=== PATIENT | female | born 1955 | race Two or more races ===

== ENCOUNTER 2025-04-22 10:45 | Inpatient (IN) | payer OTHER ==
[~2025-04-22] VITALS: Ht 149.9 cm; Wt 59.9 kg
[2025-04-28] MEDS ORDERED: METRONIDAZOLE/SODIUM CHLORIDE 500 MG/100 ML PIGGYBACK IV ONE ×2 (07:04→07:45)
[2025-04-28] MEDS ORDERED: CEFTRIAXONE SODIUM 2,000 MG VIAL ONE (07:04)
[2025-04-28] MEDS ORDERED: CEFTRIAXONE SODIUM 2,000 MG VIAL IV ONE (07:45)
[2025-04-28] MEDS ORDERED: SUGAMMADEX SODIUM 200 MG/2 ML VIAL IV ONE ×2 (08:50→10:15)
[2025-04-28] MEDS ORDERED: MORPHINE SULFATE 4 MG/ML VIAL IV ONE ×3 (11:00→17:35)
[2025-04-28] MEDS ORDERED: ENALAPRILAT DIHYDRATE 1.25 MG/ML VIAL IV ONE ×2 (12:49→14:51)
[2025-04-28] MEDS ORDERED: ENALAPRILAT DIHYDRATE 2.5 MG/2 ML VIAL IV ONE (12:55)
[2025-04-28] MEDS ORDERED: ONDANSETRON HCL 2 MG/ML VIAL ONE (12:56)
[2025-04-28] MEDS ORDERED: ONDANSETRON HCL 2 MG/ML VIAL IV ONE (13:00)
[2025-04-28] MEDS ORDERED: ACETAMINOPHEN 500 MG GEL..CAP PO SCH (14:00)
[2025-04-28] MEDS ORDERED: MORPHINE SULFATE 4 MG/ML CARTRIDGE IV PRN (14:00)
[2025-04-28] MEDS ORDERED: ONDANSETRON HCL 2 MG/ML VIAL IV PRN (14:00)
[2025-04-28] MEDS ORDERED: OxyCODONE HCL 5 MG TABLET (ROXICODONE) PO PRN (14:00)
[2025-04-28] MEDS ORDERED: RINGERS SOLUTION,LACTATED 1,000 ML IV SCH (14:00)
[2025-04-28] MEDS ORDERED: ENALAPRILAT DIHYDRATE 1.25 MG/ML VIAL IV PRN (14:15)
[2025-04-28 15:19] LABS: BASO % 0.2 % (0.1-1.2); EOS # 0.00 (0.04-0.54); EOS % 0.0 % (0.7-7.0); LYMPH # 1.10 (1.18-3.74); LYMPH % 9.6 % (19.3-53.1); MEAN PLATELET VOLUME 9.70 fl (9.4-12.4); MONO # 1.18 (0.24-0.82); MONO % 10.3 % (4.7-12.5); NEUT # 9.11 (1.56-6.13); NEUT % 79.6 % (34.0-71.1); RED CELL DISTRIBUTION WIDTH 12.0 % (11.6-14.4)
[2025-04-28] MEDS ORDERED: METOCLOPRAMIDE HCL 5 MG/ML VIAL IV SCH (17:00)
[2025-04-28] MEDS ORDERED: HYOSCYAMINE SULFATE 0.125 MG TAB.SUBL SL SCH (17:00)
[2025-04-28] MEDS ORDERED: SIMETHICONE 125 MG CAPSULE PO SCH (17:00)
[2025-04-28] MEDS ORDERED: CELECOXIB 200 MG CAPSULE PO SCH (17:00)
[2025-04-28] MEDS ORDERED: POLYETHYLENE GLYCOL 3350 17 GM BLIST.PACK PO SCH (17:00)
[2025-04-28] MEDS ORDERED: GABAPENTIN 300 MG CAPSULE PO SCH (17:00)
[2025-04-28] MEDS ORDERED: CELECOXIB 200 MG CAPSULE PO ONE (17:36)
[2025-04-28] MEDS ORDERED: HYOSCYAMINE SULFATE 0.125 MG TAB.SUBL ONE (17:36)
[2025-04-28] MEDS ORDERED: GABAPENTIN 300 MG CAPSULE PO ONE (17:36)
[2025-04-28] MEDS ORDERED: METOCLOPRAMIDE HCL 5 MG/ML VIAL ONE (17:36)
[2025-04-28] MEDS ORDERED: SIMETHICONE 125 MG CAPSULE PO ONE (17:36)
[2025-04-28 18:30] VITALS: BP 133/70; O2SAT 97
[2025-04-28] MEDS ORDERED: FAMOTIDINE/PF 20 MG/2 ML VIAL IV PUSH SCH (21:00)
[2025-04-29 07:01] LABS: BASO % 0.5 % (0.1-1.2); EOS # 0.02 (0.04-0.54); EOS % 0.2 % (0.7-7.0); LYMPH # 1.53 (1.18-3.74); LYMPH % 15.1 % (19.3-53.1); MEAN PLATELET VOLUME 9.80 fl (9.4-12.4); MONO # 1.12 (0.24-0.82); MONO % 11.0 % (4.7-12.5); NEUT # 7.39 (1.56-6.13); NEUT % 72.9 % (34.0-71.1); RED CELL DISTRIBUTION WIDTH 12.3 % (11.6-14.4)
[2025-04-29 07:36] LABS: BUN CREA RATIO 11.0 (7.0-25.0); CREATININE SERUM 0.76 mg/dL (0.55-1.02); GFR 75.68; GLUCOSE FASTING 108.0 mg/dL (65-100); OSMOLALITY SERUM 280.0 MOSM/KG (275-295)
[2025-04-29 08:00] VITALS: BP 95/57; O2SAT 98
[2025-04-29] MEDS ORDERED: LACTULOSE 20 G/30 ML BLIST.PACK PO SCH (09:00)
[2025-04-29] MEDS ORDERED: LACTOBACILLUS ACIDOPHILUS 1 CAP CAP PO SCH (09:00)
[2025-04-29] MEDS ORDERED: ENOXAPARIN SODIUM 40 MG/0.4 ML SYRINGE SUBCUTANEO SCH (17:00)
[2025-04-29 17:16] VITALS: BP 102/65; O2SAT 96
[2025-04-30 00:15] VITALS: BP 123/70; O2SAT 96
[2025-04-30 07:00] LABS: BASO % 0.5 % (0.1-1.2); EOS # 0.02 (0.04-0.54); EOS % 0.2 % (0.7-7.0); LYMPH # 1.77 (1.18-3.74); LYMPH % 19.1 % (19.3-53.1); MEAN PLATELET VOLUME 9.80 fl (9.4-12.4); MONO # 0.70 (0.24-0.82); MONO % 7.5 % (4.7-12.5); NEUT # 6.71 (1.56-6.13); NEUT % 72.4 % (34.0-71.1); RED CELL DISTRIBUTION WIDTH 12.4 % (11.6-14.4)
[2025-04-30 07:47] LABS: BUN CREA RATIO 19.0 (7.0-25.0); CREATININE SERUM 0.58 mg/dL (0.55-1.02); GFR 103.38; GLUCOSE FASTING 89.0 mg/dL (65-100); OSMOLALITY SERUM 286.0 MOSM/KG (275-295)
[2025-04-30] MEDS ORDERED: SOD FERRIC GLUC COMPLX/SUCROSE 62.5 MG in 0.9 % SODIUM CHLORIDE 50 ML IV SCH (09:00)
[2025-04-30] MEDS ORDERED: Cyanocobalamin/Mecobalamin 1 TAB.SL SL SCH (09:00)
[2025-04-30] MEDS ORDERED: ENOXAPARIN SODIUM 40 MG/0.4 ML SYRINGE SUBCUTANEO SCH (09:00)
[2025-04-30] MEDS ORDERED: PANTOPRAZOLE SODIUM 40 MG TABLET.DR PO SCH (09:00)
== END 2025-04-30 12:49 | disposition home or self-care (01) | DRG 331 ==
LOC: O/R 04-28 05:12 → SURG 04-28 10:15 → O/R 04-28 14:26 → SURG 04-28 15:57
PROVIDERS: Internal Medicine Geriatric Medicine; ADMIT Colon & Rectal Surgery; ATTEND Colon & Rectal Surgery
PROC: 0DBP4ZZ Excision of Rectum, Percutaneous Endoscopic Approach (ICD-10-PCS; 2025-04-28)
PROC: 0DJD8ZZ Inspection of Lower Intestinal Tract, Via Natural or Artificial Opening Endoscopic (ICD-10-PCS; 2025-04-28)
PROC: 8E0W4CZ Robotic Assisted Procedure of Trunk Region, Percutaneous Endoscopic Approach (ICD-10-PCS; 2025-04-28)
PROC: 0DTN4ZZ Resection of Sigmoid Colon, Percutaneous Endoscopic Approach (ICD-10-PCS; principal; 2025-04-28 10:15)
DX: K57.32 Diverticulitis of large intestine without perforation or abscess without bleeding (principal); K59.09 Other constipation
CPT/HCPCS: 44207; 44213; 45300; S2900